=== PATIENT | male | born 1960 | race Caucasian/White ===

== ENCOUNTER → 2019-02-22 | Outpatient (CLI) | payer MEDICAID ==
[2019-02-22 08:14] LABS: Basophils # (auto) 0.1 uL; Mean Corpuscular Hemoglobin 26.5 pg (28.0-32.0); Nucleated Red Blood Cells % 0.1 %; White Blood Cell 6.7 10^3/uL (4.4-10.8)
[2019-02-22 08:15] LABS: Basophils % (auto) 0.8 % (0.0-2.0); Eosinophils # (auto) 0.3 uL; Eosinophils % (auto) 3.9 % (0.0-7.0); Hematocrit 42.4 % (41.0-53.0); Lymphocytes # (auto) 3.5 uL; Mean Corpuscular Hgb Conc. 33.1 g/dL (32.0-36.0); Monocytes # (auto) 0.5 uL; Monocytes % (auto) 6.8 % (0.0-12.0); Neutrophils # (auto) 2.4 uL; Neutrophils % (auto) 36.5 % (37.0-80.0); Platelet Count (auto) 191 10^3/uL (140-450); Red Cell Distribution Width 15.2 % (11.8-14.3)
[2019-02-22 09:07] LABS: Albumin 3.8 g/dL (3.4-5.0); Calcium 9.2 mg/dL (8.5-10.1); Potassium 3.9 mmol/L (3.5-5.1)
[2019-02-22 09:10] LABS: BUN/Creatinine Ratio 15.1; Bilirubin, Total 0.4 mg/dL (0.2-1.0); Total Protein 7.4 g/dL (6.4-8.2)
== END | disposition home or self-care (01) ==
LOC: LAB 07:54
PROVIDERS: ATTEND Internal Medicine
DX: Z12.11 Encounter for screening for malignant neoplasm of colon (principal); E11.9 Type 2 diabetes mellitus without complications; E78.5 Hyperlipidemia, unspecified; I10 Essential (primary) hypertension
CPT/HCPCS: 36415; 80053; 80061; 83036; 84153; 85025

== ENCOUNTER → 2019-02-27 | Outpatient (CLI) | payer MEDICAID | END | disposition home or self-care (01) | LOC: LAB 10:20 | PROVIDERS: ATTEND Internal Medicine | DX: Z12.11 Encounter for screening for malignant neoplasm of colon (principal); E11.9 Type 2 diabetes mellitus without complications; E78.5 Hyperlipidemia, unspecified; I10 Essential (primary) hypertension | CPT/HCPCS: 82270 ==

== ENCOUNTER → 2019-03-17 | Outpatient (CLI) | payer OTHER, MEDICAID ==
[~2019-03-17] MED LIST: ALPR0.254 PO; ASPI-404 PO; ATOR40TA52 PO; BENA40TA7 PO; BUPR300T28 PO; CITA-77 PO; IBUP800T24 PO; INSU50IN SC; LIRA18IN2 SUBCUT; LURA1TAB2 PO; METF-370 PO; MODA200T50 PO; PANT40TA2 PO; RISP1TAB63 PO; TOPI100T29 PO
== END | disposition home or self-care (01) ==
LOC: LAB 09:37
PROVIDERS: ATTEND Internal Medicine
DX: E11.9 Type 2 diabetes mellitus without complications (principal); I10 Essential (primary) hypertension; E78.5 Hyperlipidemia, unspecified
CPT/HCPCS: 82043

== ENCOUNTER 2019-03-21 10:08 | Day surgery (SDC) | payer OTHER, MEDICAID ==
[2019-03-17 10:49] LABS: Basophils # (auto) 0.1 uL; Eosinophils # (auto) 0.2 uL; Monocytes # (auto) 0.5 uL; White Blood Cell 7.6 10^3/uL (4.4-10.8)
[2019-03-17 10:52] LABS: Basophils % (auto) 0.8 % (0.0-2.0); Eosinophils % (auto) 2.4 % (0.0-7.0); Hematocrit 45.5 % (41.0-53.0); Hemoglobin 15.2 g/dL (13.5-17.5); Lymphocytes # (auto) 3.9 uL; Lymphocytes % (auto) 51.3 % (10.0-50.0); Mean Corpuscular Hemoglobin 26.9 pg (28.0-32.0); Mean Corpuscular Hgb Conc. 33.4 g/dL (32.0-36.0); Mean Corpuscular Volume 80.3 fL (80.0-100.0); Monocytes % (auto) 6.7 % (0.0-12.0); Neutrophils # (auto) 2.9 uL; Neutrophils % (auto) 38.8 % (37.0-80.0); Nucleated Red Blood Cells % 0.2 %; Platelet Count (auto) 210 10^3/uL (140-450); Red Blood Cells 5.66 10^6/uL (4.5-5.90); Red Cell Distribution Width 14.9 % (11.8-14.3)
[2019-03-17 11:00] LABS: INR 0.95 (0.9-1.15); Partial Thromboplastin Time 25.1 sec (23.64-32.05)
[~2019-03-21] VITALS: Ht 165.1 cm; Wt 84.4 kg
[2019-03-21] MEDS ORDERED: SODIUM CHLORIDE LOCK 10 ML ONE (10:34)
[2019-03-21] MEDS ORDERED: LIDOCAINE VISCOUS 2% 15ML UD ONE (10:34)
[2019-03-21] MEDS ORDERED: NALOXONE HCL 0.4 MG/ML VIAL ONE (10:34)
[2019-03-21] MEDS ORDERED: FLUMAZENIL 0.1 MG/ML INJ 10ML MDV IV ONE (10:34)
[2019-03-21] MEDS ORDERED: diphenhdrAMINE HCL 50 MG/1 ML VL ONE (10:35)
[2019-03-21] MEDS: MIDAZOLAM HCL 5 MG/ML-1ML VIAL ONE ×3 (12:08→12:19)
[2019-03-21] MEDS: fentaNYL CITRATE 100 MCG/2 ML VL ONE ×3 (12:08→12:19)
[2019-03-21 13:27] VITALS: BP 117/77
== END 2019-03-21 14:15 | disposition home or self-care (01) ==
LOC: SUR 10:08
PROVIDERS: ATTEND Internal Medicine Gastroenterology
DX: D12.3 Benign neoplasm of transverse colon (principal); K62.1 Rectal polyp; K51.40 Inflammatory polyps of colon without complications; K29.50 Unspecified chronic gastritis without bleeding; R14.0 Abdominal distension (gaseous); K29.80 Duodenitis without bleeding; K21.9 Gastro-esophageal reflux disease without esophagitis; Z98.890 Other specified postprocedural states; Z79.899 Other long term (current) drug therapy; Z79.84 Long term (current) use of oral hypoglycemic drugs; Z98.49 Cataract extraction status, unspecified eye
CPT/HCPCS: 36415; 43239; 45380; 82962; 85025; 85610; 85730; 88305; 88342; J1200; J2250; J3010; J7030; 99152; 99153

== ENCOUNTER → 2019-09-27 | Outpatient (CLI) | payer OTHER, MEDICAID ==
[2019-09-27 09:08] LABS: Cholesterol 145 mg/dL (< 200); HDL Cholesterol 27 mg/dL (40-59); LDL Cholesterol 90 mg/dL (< 100); Triglycerides 247 mg/dL (< 150)
== END | disposition home or self-care (01) ==
LOC: LAB 07:58
PROVIDERS: ATTEND Internal Medicine
DX: E11.9 Type 2 diabetes mellitus without complications (principal)
CPT/HCPCS: 36415; 80061; 83036

== ENCOUNTER → 2019-10-18 | Outpatient (CLI) | payer OTHER, MEDICAID | END | disposition home or self-care (01) | LOC: LAB 08:38 | PROVIDERS: ATTEND Internal Medicine | DX: M25.562 Pain in left knee (principal); M25.521 Pain in right elbow; I10 Essential (primary) hypertension | CPT/HCPCS: 36415; 84550; 85652; 86038; 86431 ==

== ENCOUNTER → 2020-01-24 | Outpatient (CLI) | payer OTHER, MEDICAID | END | disposition home or self-care (01) | LOC: LAB 07:42 | PROVIDERS: ATTEND Internal Medicine | DX: E11.9 Type 2 diabetes mellitus without complications (principal); Z12.5 Encounter for screening for malignant neoplasm of prostate | CPT/HCPCS: 36415; 82043; 83036; 84153 ==

== ENCOUNTER → 2020-04-24 | Outpatient (CLI) | payer OTHER, MEDICAID ==
[~2020-04-24] MED LIST changes: -ASPI-404 PO; +ASPI-543 PO
[2020-04-24 08:37] LABS: Potassium 4.3 mmol/L (3.5-5.1)
[2020-04-24 08:47] LABS: Albumin 3.5 g/dL (3.4-5.0); BUN/Creatinine Ratio 12.3; Bilirubin, Total 0.4 mg/dL (0.2-1.0); Total Protein 7.5 g/dL (6.4-8.2)
== END | disposition home or self-care (01) ==
LOC: LAB 07:06
PROVIDERS: ATTEND Internal Medicine
DX: E11.9 Type 2 diabetes mellitus without complications (principal); E78.5 Hyperlipidemia, unspecified
CPT/HCPCS: 36415; 80053; 80061; 82270

== ENCOUNTER → 2020-06-25 | Day surgery (SDC) | payer OTHER, MEDICAID ==
[2020-06-20 12:11] LABS: Basophils # (auto) 0.1 10 ^3/uL (0-0.2); Eosinophils # (auto) 0.2 10 ^3/uL (0-0.8); Eosinophils % (auto) 2.1 % (0.0-7.0); Mean Corpuscular Volume 78.4 fL (80.0-100.0); Monocytes # (auto) 0.5 10 ^3/uL (0-1.3); White Blood Cell 9.2 10^3/uL (4.4-10.8)
[2020-06-20 12:12] LABS: INR 0.99 (0.9-1.15); Lymphocytes # (auto) 4.7 10 ^3/uL (0.4-5.4); Lymphocytes % (auto) 51.3 % (10.0-50.0); Mean Corpuscular Hemoglobin 26.1 pg (28.0-32.0); Mean Corpuscular Hgb Conc. 33.3 g/dL (32.0-36.0); Neutrophils # (auto) 3.6 10 ^3/uL (1.6-8.6); Neutrophils % (auto) 39.6 % (37.0-80.0); Nucleated Red Blood Cells % 0.1 %; Partial Thromboplastin Time 24.1 sec (23.0-31.2); Platelet Count (auto) 249 10^3/uL (140-450); Red Blood Cells 6.13 10^6/uL (4.5-5.90); Red Cell Distribution Width 15.3 % (11.8-14.3)
[~2020-06-25] VITALS: Ht 165.1 cm; Wt 83.5 kg
[~2020-06-25] MED LIST changes: -CITA-77 PO; +FLUMAZENIL 0.1 MG/ML INJ 10ML MDV IV ONE; +FLUO-125 PO; -IBUP800T24 PO; +NALOXONE HCL 0.4 MG/ML VIAL ONE; +SODIUM CHLORIDE LOCK 10 ML ONE; +diphenhdrAMINE HCL 50 MG/1 ML VL ONE
[2020-06-25] MEDS: fentaNYL CITRATE 100 MCG/2 ML VL ONE ×3 (09:18→09:27)
[2020-06-25] MEDS: MIDAZOLAM HCL 5 MG/ML-1ML VIAL ONE ×4 (09:18→09:42)
[2020-06-25 10:30] VITALS: BP 116/68
== END | disposition home or self-care (01) ==
LOC: GI 08:47
PROVIDERS: ATTEND Internal Medicine Gastroenterology
DX: K62.5 Hemorrhage of anus and rectum (principal); D12.3 Benign neoplasm of transverse colon; D12.4 Benign neoplasm of descending colon; K63.5 Polyp of colon; N28.9 Disorder of kidney and ureter, unspecified; E11.9 Type 2 diabetes mellitus without complications; M79.9 Soft tissue disorder, unspecified; F17.200 Nicotine dependence, unspecified, uncomplicated; Z20.828 Contact with and (suspected) exposure to other viral communicable diseases; Z98.890 Other specified postprocedural states; Z79.899 Other long term (current) drug therapy
CPT/HCPCS: 36415; 45380; 45385; 82962; 85025; 85610; 85730; 88305; J1200; J2250; J3010; J7030; U0003; 99152; 99153

== ENCOUNTER → 2020-07-24 | Outpatient (CLI) | payer OTHER, MEDICAID ==
[~2020-07-24] MED LIST changes: -FLUMAZENIL 0.1 MG/ML INJ 10ML MDV IV ONE; -NALOXONE HCL 0.4 MG/ML VIAL ONE; -SODIUM CHLORIDE LOCK 10 ML ONE; -diphenhdrAMINE HCL 50 MG/1 ML VL ONE
[2020-07-24 08:22] LABS: Albumin 3.9 g/dL (3.4-5.0); Bilirubin, Direct 0.2 mg/dL (0-0.2); Bilirubin, Total 0.5 mg/dL (0.2-1.0); Total Protein 7.8 g/dL (6.4-8.2)
== END | disposition home or self-care (01) ==
LOC: LAB 07:17
PROVIDERS: ATTEND Internal Medicine
DX: E78.5 Hyperlipidemia, unspecified (principal)
CPT/HCPCS: 36415; 80061; 80076

== ENCOUNTER → 2020-09-05 | Outpatient (CLI) | payer OTHER, MEDICAID ==
[~2020-09-05] MED LIST changes: -BENA40TA7 PO; +BENA40TA8 PO; +LURA1TAB PO; -LURA1TAB2 PO
== END | disposition home or self-care (01) ==
LOC: XYW 10:10
PROVIDERS: ATTEND Internal Medicine
DX: M22.41 Chondromalacia patellae, right knee (principal); M17.11 Unilateral primary osteoarthritis, right knee; M89.38 Hypertrophy of bone, other site; M79.4 Hypertrophy of (infrapatellar) fat pad; R60.0 Localized edema
CPT/HCPCS: 73721

== ENCOUNTER 2020-11-06 10:47 | Emergency (ER) | payer OTHER, MEDICAID ==
[~2020-11-06] VITALS: Ht 165.1 cm; Wt 90.7 kg
[2020-11-06 11:18] LABS: Basophils # (auto) 0.1 10 ^3/uL (0-0.2); Basophils % (auto) 0.7 % (0.0-2.0); Eosinophils # (auto) 0.1 10 ^3/uL (0-0.8); Hemoglobin 14.6 g/dL (13.5-17.5); Monocytes # (auto) 0.6 10 ^3/uL (0-1.3); Nucleated Red Blood Cells % 0.1 %
[2020-11-06 11:20] LABS: Eosinophils % (auto) 1.5 % (0.0-7.0); Hematocrit 43.6 % (41.0-53.0); Lymphocytes # (auto) 3.1 10 ^3/uL (0.4-5.4); Lymphocytes % (auto) 39.2 % (10.0-50.0); Mean Corpuscular Hemoglobin 26.3 pg (28.0-32.0); Mean Corpuscular Hgb Conc. 33.4 g/dL (32.0-36.0); Mean Corpuscular Volume 78.5 fL (80.0-100.0); Neutrophils % (auto) 50.6 % (37.0-80.0); Platelet Count (auto) 215 10^3/uL (140-450); Red Blood Cells 5.55 10^6/uL (4.5-5.90); Red Cell Distribution Width 15.3 % (11.8-14.3); White Blood Cell 7.9 10^3/uL (4.4-10.8)
[2020-11-06 11:51] LABS: Albumin 3.7 g/dL (3.4-5.0); Anion Gap 8 (5-15); Blood Urea Nitrogen 14 mg/dL (7-18); Calcium 8.8 mg/dL (8.5-10.1); Carbon Dioxide 26 mmol/L (21-32); Chloride 105 mmol/L (98-107); Glucose 180 mg/dL (74-106); Magnesium 1.9 mg/dL (1.6-2.6); Potassium 3.9 mmol/L (3.5-5.1); Sodium 139 mmol/L (136-145)
[2020-11-06 11:58] LABS: Alanine Aminotransferase 47 U/L (16-61); Alkaline Phosphatase 81 U/L (45-117); Aspartate Aminotransferase 22 U/L (15-37); BUN/Creatinine Ratio 11.9; Bilirubin, Total 0.4 mg/dL (0.2-1.0); GFR African American 81 mL/min; GFR Non-African American 67 mL/min; Total Protein 7.7 g/dL (6.4-8.2)
[2020-11-06 12:11] LABS: INR 0.97 (0.9-1.15); Partial Thromboplastin Time 24.4 sec (23.0-31.2)
[2020-11-06 13:01] VITALS: BP 129/75
== END 2020-11-06 14:51 | disposition home or self-care (01) ==
LOC: ER 10:47
DX: S20.212A Contusion of left front wall of thorax, initial encounter (principal); E11.9 Type 2 diabetes mellitus without complications; K21.9 Gastro-esophageal reflux disease without esophagitis; I10 Essential (primary) hypertension; F17.210 Nicotine dependence, cigarettes, uncomplicated; Z79.899 Other long term (current) drug therapy; Z79.82 Long term (current) use of aspirin; W19.XXXA Unspecified fall, initial encounter; Y93.89 Activity, other specified; Y92.89 Other specified places as the place of occurrence of the external cause; Y99.8 Other external cause status
CPT/HCPCS: 36415; 71045; 71250; 80053; 83735; 84484; 85025; 85610; 85730; 93005

== ENCOUNTER 2021-02-07 19:50 | Emergency (ER) | payer OTHER, MEDICAID ==
[~2021-02-07] VITALS: Ht 165.1 cm; Wt 81.6 kg
[2021-02-07 19:50] VITALS: BP 146/82
[2021-02-07] MEDS ORDERED: KETOROLAC TROMETH 60MG/2ML VIAL IM ONE (22:00)
== END 2021-02-07 21:54 | disposition left against medical advice (07) ==
LOC: ER 19:50
DX: M25.562 Pain in left knee (principal); Z53.21 Procedure and treatment not carried out due to patient leaving prior to being seen by health care provider; W19.XXXA Unspecified fall, initial encounter; Y93.89 Activity, other specified; Y92.89 Other specified places as the place of occurrence of the external cause; Y99.8 Other external cause status

== ENCOUNTER → 2021-03-12 | Outpatient (CLI) | payer OTHER, MEDICAID | END | disposition home or self-care (01) | LOC: LAB 09:50 | PROVIDERS: ATTEND Internal Medicine | DX: K21.9 Gastro-esophageal reflux disease without esophagitis (principal); K63.5 Polyp of colon | CPT/HCPCS: 86677 ==

== ENCOUNTER → 2021-05-06 | Outpatient (CLI) | payer OTHER, MEDICAID | END | disposition home or self-care (01) | LOC: LAB 08:40 | PROVIDERS: ATTEND Internal Medicine | DX: E11.9 Type 2 diabetes mellitus without complications (principal) | CPT/HCPCS: 36415; 83036 ==

== ENCOUNTER → 2021-07-10 | Outpatient (CLI) | payer OTHER, MEDICAID ==
[~2021-07-10] MED LIST changes: -MODA200T50 PO; +MODA200T73 PO
== END | disposition home or self-care (01) ==
LOC: XY 08:33
PROVIDERS: ATTEND Psychiatry & Neurology Neurology
DX: I65.29 Occlusion and stenosis of unspecified carotid artery (principal)
CPT/HCPCS: 93886

== ENCOUNTER → 2021-09-03 | Day surgery (SDC) | payer OTHER, MEDICAID ==
[2021-08-29 11:14] LABS: Hemoglobin 16.1 g/dL (13.5-17.5); Mean Corpuscular Hemoglobin 26.1 pg (28.0-32.0)
[2021-08-29 11:15] LABS: Hematocrit 48.5 % (41.0-53.0); Mean Corpuscular Hgb Conc. 33.2 g/dL (32.0-36.0); Mean Corpuscular Volume 78.5 fL (80.0-100.0); Red Blood Cells 6.18 10^6/uL (4.5-5.90); Red Cell Distribution Width 15.2 % (11.8-14.3); White Blood Cell 7.3 10^3/uL (4.4-10.8)
[2021-08-29 11:17] LABS: INR 1.03 (0.9-1.15); Partial Thromboplastin Time 25.7 sec (23.6-33.0)
[2021-08-29 11:18] LABS: Band Neutrophils % (manual) 0; Basophils % (manual) 0 (0.0-2.0); Blast Cells 0; Metamyelocytes % 0; Myelocytes % 0; Promyelocytes % 0
[2021-08-29 11:44] LABS: Potassium 4.9 mmol/L (3.5-5.1)
[2021-08-29 12:10] LABS: Albumin 4.4 g/dL (3.4-5.0); BUN/Creatinine Ratio 16.9; Bilirubin, Total 0.6 mg/dL (0.2-1.0); Calcium 10.2 mg/dL (8.5-10.1); Total Protein 8.6 g/dL (6.4-8.2)
[2021-08-29 14:42] LABS: Eosinophils % (manual) 2 (0-7); Lymphocytes % (manual) 54 (10.0-50.0); Monocytes % (manual) 10 (0-12); Reactive Lymphocytes 8
[~2021-09-03] VITALS: Ht 165.1 cm; Wt 82.6 kg
[~2021-09-03] MED LIST changes: +LIDOCAINE VISCOUS 2% 15ML UD ONE; -MODA200T73 PO; -RISP1TAB63 PO; -TOPI100T29 PO
[2021-09-03] MEDS: fentaNYL CITRATE 100 MCG/2 ML VL ONE ×2 (14:30→14:33)
[2021-09-03] MEDS: diphenhdrAMINE HCL 50 MG/1 ML VL ONE ×2 (14:30→14:33)
[2021-09-03] MEDS: MIDAZOLAM HCL 5 MG/ML-1ML VIAL ONE ×2 (14:30→14:33)
[2021-09-03 15:15] VITALS: BP 139/76
== END | disposition home or self-care (01) ==
LOC: GI 13:07
PROVIDERS: ATTEND Internal Medicine Gastroenterology
DX: K21.9 Gastro-esophageal reflux disease without esophagitis (principal); K29.50 Unspecified chronic gastritis without bleeding; K31.89 Other diseases of stomach and duodenum; K44.9 Diaphragmatic hernia without obstruction or gangrene; K29.90 Gastroduodenitis, unspecified, without bleeding; F17.200 Nicotine dependence, unspecified, uncomplicated; I10 Essential (primary) hypertension; E11.9 Type 2 diabetes mellitus without complications; E78.5 Hyperlipidemia, unspecified; F32.9 Major depressive disorder, single episode, unspecified; G47.30 Sleep apnea, unspecified; Z20.822 Contact with and (suspected) exposure to COVID-19
CPT/HCPCS: 36415; 43239; 80053; 82962; 85007; 85027; 85610; 85730; 88305; 88312; 88342; J1200; J2250; J3010; J7030; U0003; 99152

== ENCOUNTER → 2021-09-09 | Outpatient (CLI) | payer OTHER, MEDICAID ==
[~2021-09-09] MED LIST changes: -LIDOCAINE VISCOUS 2% 15ML UD ONE
[2021-09-09 09:03] LABS: Red Cell Distribution Width 15.5 % (11.8-14.3)
[2021-09-09 09:05] LABS: Hematocrit 43.1 % (41.0-53.0); Hemoglobin 14.1 g/dL (13.5-17.5); Mean Corpuscular Hemoglobin 25.8 pg (28.0-32.0); Mean Corpuscular Hgb Conc. 32.6 g/dL (32.0-36.0); Red Blood Cells 5.45 10^6/uL (4.5-5.90); White Blood Cell 6.3 10^3/uL (4.4-10.8)
[2021-09-09 09:08] LABS: Basophils % (manual) 0 (0.0-2.0); Blast Cells 0; Metamyelocytes % 0; Myelocytes % 0; Promyelocytes % 0; Reactive Lymphocytes 0
[2021-09-09 09:12] LABS: Potassium 4.9 mmol/L (3.5-5.1)
[2021-09-09 09:29] LABS: Albumin 3.9 g/dL (3.4-5.0); BUN/Creatinine Ratio 13.2; Bilirubin, Total 0.8 mg/dL (0.2-1.0); Total Protein 7.7 g/dL (6.4-8.2)
[2021-09-09 09:33] LABS: Band Neutrophils % (manual) 1; Eosinophils % (manual) 3 (0-7); Lymphocytes % (manual) 55 (10.0-50.0); Monocytes % (manual) 5 (0-12)
== END | disposition home or self-care (01) ==
LOC: LAB 07:57
PROVIDERS: ATTEND Internal Medicine
DX: E11.49 Type 2 diabetes mellitus with other diabetic neurological complication (principal); R80.9 Proteinuria, unspecified
CPT/HCPCS: 36415; 80053; 80061; 82043; 83036; 85007; 85027

== ENCOUNTER → 2021-11-19 | Day surgery (SDC) | payer OTHER, MEDICAID ==
[2021-11-17 08:37] LABS: Eosinophils # (auto) 0.3 10 ^3/uL (0-0.8); Hemoglobin 14.7 g/dL (13.5-17.5); Monocytes # (auto) 0.4 10 ^3/uL (0-1.3); Nucleated Red Blood Cells % 0.1 %; Red Blood Cells 5.66 10^6/uL (4.5-5.90)
[2021-11-17 08:40] LABS: Basophils # (auto) 0.1 10 ^3/uL (0-0.2); Basophils % (auto) 1.2 % (0.0-2.0); Eosinophils % (auto) 4.4 % (0.0-7.0); Hematocrit 44.3 % (41.0-53.0); Lymphocytes # (auto) 3.6 10 ^3/uL (0.4-5.4); Lymphocytes % (auto) 56.5 % (10.0-50.0); Mean Corpuscular Hemoglobin 25.9 pg (28.0-32.0); Mean Corpuscular Hgb Conc. 33.1 g/dL (32.0-36.0); Mean Corpuscular Volume 78.3 fL (80.0-100.0); Monocytes % (auto) 6.3 % (0.0-12.0); Neutrophils % (auto) 31.6 % (37.0-80.0); Red Cell Distribution Width 14.9 % (11.8-14.3); White Blood Cell 6.4 10^3/uL (4.4-10.8)
[2021-11-17 08:49] LABS: INR 1.01 (0.9-1.15); Partial Thromboplastin Time 25.1 sec (23.6-33.0)
[2021-11-17 09:45] LABS: Albumin 3.8 g/dL (3.4-5.0); Calcium 9.5 mg/dL (8.5-10.1); Potassium 5.1 mmol/L (3.5-5.1)
[2021-11-17 09:48] LABS: BUN/Creatinine Ratio 9.3; Bilirubin, Total 0.5 mg/dL (0.2-1.0); Total Protein 7.8 g/dL (6.4-8.2)
[~2021-11-19] VITALS: Ht 165.1 cm; Wt 82.6 kg
[~2021-11-19] MED LIST changes: +LIDOCAINE VISCOUS 2% 15ML UD ONE
[2021-11-19] MEDS: diphenhdrAMINE HCL 50 MG/1 ML VL ONE ×2 (13:25→13:30)
[2021-11-19] MEDS: MIDAZOLAM HCL 5 MG/ML-1ML VIAL ONE ×4 (13:25→13:45)
[2021-11-19] MEDS: fentaNYL CITRATE 100 MCG/2 ML VL ONE ×3 (13:25→13:33)
[2021-11-19 14:45] VITALS: BP 129/71
== END | disposition home or self-care (01) ==
LOC: GI 12:40
PROVIDERS: ATTEND Internal Medicine Gastroenterology
DX: Z12.11 Encounter for screening for malignant neoplasm of colon (principal); D12.2 Benign neoplasm of ascending colon; K63.5 Polyp of colon; K63.89 Other specified diseases of intestine; K64.8 Other hemorrhoids; G47.30 Sleep apnea, unspecified; K21.9 Gastro-esophageal reflux disease without esophagitis; I10 Essential (primary) hypertension; E11.9 Type 2 diabetes mellitus without complications; E78.5 Hyperlipidemia, unspecified; F32.A Depression, unspecified; F17.200 Nicotine dependence, unspecified, uncomplicated; Z79.82 Long term (current) use of aspirin; Z86.010 Personal history of colon polyps; Z20.822 Contact with and (suspected) exposure to COVID-19
CPT/HCPCS: 36415; 45380; 45385; 80053; 82962; 85025; 85610; 85730; 88305; J1200; J2250; J3010; J7030; U0003; 99152; 99153

== ENCOUNTER → 2021-12-08 | Outpatient (CLI) | payer OTHER, MEDICAID, MEDICARE ==
[~2021-12-08] MED LIST changes: -LIDOCAINE VISCOUS 2% 15ML UD ONE
[2021-12-08 10:10] LABS: Cholesterol 126 mg/dL (< 200); HDL Cholesterol 29 mg/dL (40-59); LDL Cholesterol 78 mg/dL (< 100); Triglycerides 149 mg/dL (< 150)
== END | disposition home or self-care (01) ==
LOC: LAB 09:08
PROVIDERS: ATTEND Internal Medicine
DX: Z12.11 Encounter for screening for malignant neoplasm of colon (principal); E11.9 Type 2 diabetes mellitus without complications; E78.5 Hyperlipidemia, unspecified
CPT/HCPCS: 36415; 80061; 83036

== ENCOUNTER → 2021-12-10 | Outpatient (CLI) | payer OTHER, MEDICARE, MEDICAID | END | disposition home or self-care (01) | LOC: LAB 09:06 | PROVIDERS: ATTEND Internal Medicine | DX: Z12.11 Encounter for screening for malignant neoplasm of colon (principal); E78.5 Hyperlipidemia, unspecified; E11.9 Type 2 diabetes mellitus without complications | CPT/HCPCS: 82270 ==

== ENCOUNTER → 2022-03-09 | Outpatient (CLI) | payer OTHER, MEDICAID ==
[2022-03-09 08:46] LABS: Cholesterol 86 mg/dL (< 200); HDL Cholesterol 30 mg/dL (40-59); LDL Cholesterol 52 mg/dL (< 100); Triglycerides 119 mg/dL (< 150)
== END | disposition home or self-care (01) ==
LOC: LAB 07:53
PROVIDERS: ATTEND Internal Medicine
DX: E11.9 Type 2 diabetes mellitus without complications (principal)
CPT/HCPCS: 36415; 80061; 83036

== ENCOUNTER → 2022-06-22 | Outpatient (CLI) | payer OTHER, MEDICAID, MEDICARE | END | disposition home or self-care (01) | LOC: LAB 09:12 | PROVIDERS: ATTEND Internal Medicine | DX: E11.9 Type 2 diabetes mellitus without complications (principal) | CPT/HCPCS: 36415; 83036 ==

== ENCOUNTER → 2022-09-21 | Outpatient (CLI) | payer OTHER, MEDICAID, MEDICARE | END | disposition home or self-care (01) | LOC: LAB 09:13 | PROVIDERS: ATTEND Internal Medicine | DX: E11.9 Type 2 diabetes mellitus without complications (principal) | CPT/HCPCS: 36415; 82043; 83036 ==

== ENCOUNTER 2022-11-19 14:59 | Emergency (ER) | payer OTHER, MEDICAID ==
[~2022-11-19] VITALS: Ht 165.1 cm; Wt 85.0 kg
[2022-11-19 15:31] VITALS: BP 133/100
[2022-11-19 15:58] LABS: Hematocrit 52.7 % (41.0-53.0); Hemoglobin 17.1 g/dL (13.5-17.5); Mean Corpuscular Hemoglobin 25.4 pg (28.0-32.0); Mean Corpuscular Hgb Conc. 32.5 g/dL (32.0-36.0); Mean Corpuscular Volume 78.1 fL (80.0-100.0); Red Blood Cells 6.74 10^6/uL (4.5-5.90); Red Cell Distribution Width 16.6 % (11.8-14.3); White Blood Cell 8.9 10^3/uL (4.4-10.8)
[2022-11-19 16:02] LABS: Band Neutrophils % (manual) 0; Basophils % (manual) 0 (0.0-2.0); Blast Cells 0; Eosinophils % (manual) 0 (0-7); Metamyelocytes % 0; Myelocytes % 0; Promyelocytes % 0
[2022-11-19 16:19] LABS: Calcium 9.5 mg/dL (8.5-10.1); Potassium 4.5 mmol/L (3.5-5.1)
[2022-11-19 16:22] LABS: BUN/Creatinine Ratio 10.5 (10.0-20.0); Bilirubin, Total 0.5 mg/dL (0.2-1.0)
[2022-11-19 16:29] LABS: Lymphocytes % (manual) 60 (10.0-50.0); Monocytes % (manual) 8 (0-12); Reactive Lymphocytes 3
[2022-11-19 17:36] LABS: Urine WBC None Seen /hpf (0 - 3)
[2022-11-19 17:58] LABS: Urine Bacteria NONE SEEN /hpf (None Seen); Urine Blood Negative /uL (Negative); Urine Specific Gravity 1.013 (1.001-1.035)
== END 2022-11-19 19:13 | disposition home or self-care (01) ==
LOC: ER 14:59
DX: F32.9 Major depressive disorder, single episode, unspecified (principal); E11.9 Type 2 diabetes mellitus without complications; K21.9 Gastro-esophageal reflux disease without esophagitis; E78.5 Hyperlipidemia, unspecified; I10 Essential (primary) hypertension; F17.210 Nicotine dependence, cigarettes, uncomplicated; Z00.00 Encounter for general adult medical examination without abnormal findings; Z79.899 Other long term (current) drug therapy; Z79.4 Long term (current) use of insulin; Z79.84 Long term (current) use of oral hypoglycemic drugs
CPT/HCPCS: 36415; 80053; 81001; 82962; 83690; 83880; 85007; 85027; 93005

== ENCOUNTER 2022-11-24 06:44 | Day surgery (SDC) | payer OTHER, MEDICAID ==
[2022-11-19 09:20] LABS: Mean Corpuscular Hemoglobin 25.5 pg (28.0-32.0); Red Cell Distribution Width 16.8 % (11.8-14.3)
[2022-11-19 09:22] LABS: Hematocrit 53.3 % (41.0-53.0); Hemoglobin 17.4 g/dL (13.5-17.5); Mean Corpuscular Hgb Conc. 32.6 g/dL (32.0-36.0); Mean Corpuscular Volume 78.2 fL (80.0-100.0); Red Blood Cells 6.81 10^6/uL (4.5-5.90); Urine Bacteria NONE SEEN /hpf (None Seen); Urine Blood Negative /uL (Negative); Urine Specific Gravity 1.017 (1.001-1.035); Urine WBC <1 /hpf (0 - 3); White Blood Cell 6.9 10^3/uL (4.4-10.8)
[2022-11-19 09:24] LABS: Band Neutrophils % (manual) 0; Basophils % (manual) 0 (0.0-2.0); Blast Cells 0; Metamyelocytes % 0; Myelocytes % 0; Promyelocytes % 0; Reactive Lymphocytes 0
[2022-11-19 09:38] LABS: INR 1.05 (0.9-1.15); Partial Thromboplastin Time 27.1 sec (24.6-33.4)
[2022-11-19 11:59] LABS: Albumin 3.9 g/dL (3.4-5.0); BUN/Creatinine Ratio 9.8 (10.0-20.0); Bilirubin, Total 0.7 mg/dL (0.2-1.0); Calcium 9.7 mg/dL (8.5-10.1); Total Protein 7.9 g/dL (6.4-8.2)
[2022-11-19 12:35] LABS: Eosinophils % (manual) 3 (0-7); Lymphocytes % (manual) 69 (10.0-50.0); Monocytes % (manual) 1 (0-12)
[2022-11-19 13:17] LABS: Potassium 5.7 mmol/L (3.5-5.1)
[~2022-11-24] VITALS: Ht 165.1 cm; Wt 82.6 kg
[~2022-11-24 06:44] MED LIST changes: +BUPIVACAINE W/ EPINEPH 0.25% INJ 50ML MDV ONE; +DexAMETHasone SOD PHOS 4 MG/1ML SDV INJ ONE
[2022-11-24] MEDS ORDERED: EPINEPHrine HCL 1 MG/1 ML AMP ONE ×2 (06:45→08:53)
[2022-11-24] MEDS ORDERED: MIDAZOLAM HCL 2MG/2ML 2ml VIAL (1mg/ml) ONE (06:59)
[2022-11-24] MEDS ORDERED: ceFAZolin 1GM/50ML 100 ML IV ONE (07:33)
[2022-11-24] MEDS ORDERED: ONDANSETRON HCL 4 MG/2 ML VIAL ONE (07:37)
[2022-11-24] MEDS ORDERED: PROPOFOL 10 MG/ML 20 ML IV ONE (07:37)
[2022-11-24] MEDS ORDERED: GLYCOPYRROLATE 0.2 MG/ML 1ML VIAL ONE (07:37)
[2022-11-24] MEDS ORDERED: KETOROLAC TROMETH 30 MG/ML 1ML VIAL ONE (07:37)
[2022-11-24] MEDS ORDERED: LIDOCAINE 2% (LOCAL ANESTH.) PF 5ml SDV ONE (07:37)
[2022-11-24] MEDS ORDERED: DexAMETHasone SOD PHOS 10MG/1ML VIAL INJ ONE (07:37)
[2022-11-24] MEDS ORDERED: fentaNYL CITRATE 100 MCG/2 ML VL ONE (07:40)
[2022-11-24] MEDS ORDERED: ROCURONIUM 10MG/ML 10ML VIAL IV ONE (07:41)
[2022-11-24] MEDS ORDERED: SUGAMMADEX 200mg/2ml Vial (100MG/ML) IV ONE (07:41)
[2022-11-24] MEDS ORDERED: HYDR1TAB97 PO ×2 (08:10→09:12)
[2022-11-24] MEDS ORDERED: ASPI-498 OR (08:12)
[2022-11-24] MEDS ORDERED: CEPH-510 PO (08:12)
[2022-11-24] MEDS ORDERED: ePHEDrine SULFATE 50 MG/ML AMP ONE (09:34)
[2022-11-24] MEDS ORDERED: SODIUM CHLORIDE LOCK 10 ML ONE (09:34)
[2022-11-24] MEDS ORDERED: ESMOLOL HCL 10 ML IV ONE (09:45)
[2022-11-24] MEDS ORDERED: TRANEXAMIC ACID 10 ML ONE (09:49)
[2022-11-24] MEDS ORDERED: LABETALOL HCL 5 MG/ML 4ML SYRINGE IV PRN (11:00)
[2022-11-24] MEDS ORDERED: HYDROmorphone HCL 2 MG/ML VL/or syr IV PRN (11:00)
[2022-11-24] MEDS ORDERED: hydrALAZINE HCL 20 MG/ML VL IV PRN (11:00)
[2022-11-24] MEDS ORDERED: fentaNYL CITRATE 100 MCG/2 ML VL IV PRN (11:00)
[2022-11-24] MEDS ORDERED: ONDANSETRON HCL 4 MG/2 ML VIAL IV PRN (11:00)
[2022-11-24] MEDS ORDERED: FLUMAZENIL 0.1 MG/ML INJ 10ML MDV IV PRN (11:00)
[2022-11-24] MEDS ORDERED: NALOXONE HCL 0.4 MG/ML VIAL IV PRN (11:00)
[2022-11-24] MEDS ORDERED: ePHEDrine SULFATE 50 MG/ML AMP IV PRN (11:00)
[2022-11-24 11:40] VITALS: BP 147/71
== END 2022-11-24 10:43 | disposition home or self-care (01) ==
LOC: SUR 06:44
PROVIDERS: ATTEND Orthopaedic Surgery Sports Medicine
DX: M75.122 Complete rotator cuff tear or rupture of left shoulder, not specified as traumatic (principal); G89.29 Other chronic pain; S43.432A Superior glenoid labrum lesion of left shoulder, initial encounter; X58.XXXA Exposure to other specified factors, initial encounter; Y93.89 Activity, other specified; Y92.89 Other specified places as the place of occurrence of the external cause; Y99.8 Other external cause status; M75.52 Bursitis of left shoulder; E11.9 Type 2 diabetes mellitus without complications; I10 Essential (primary) hypertension; Z79.899 Other long term (current) drug therapy; Z79.84 Long term (current) use of oral hypoglycemic drugs
CPT/HCPCS: 29823; 29826; 29827; 36415; 80053; 81001; 82962; 85007; 85027; 85610; 85730; J0171; J0690; J1100; J1885; J2001; J2250; J2405; J2704; J3010; A4565

== ENCOUNTER → 2022-12-16 | Outpatient (CLI) | payer OTHER, MEDICAID ==
[~2022-12-16] MED LIST changes: +ASPI-498 OR; -BUPIVACAINE W/ EPINEPH 0.25% INJ 50ML MDV ONE; +CEPH-510 PO; -DexAMETHasone SOD PHOS 4 MG/1ML SDV INJ ONE; +HYDR1TAB97 PO
[2022-12-16 09:51] LABS: Calcium 10.1 mg/dL (8.5-10.1); Potassium 5.5 mmol/L (3.5-5.1)
[2022-12-16 09:56] LABS: Albumin 4.2 g/dL (3.4-5.0); BUN/Creatinine Ratio 15.1 (10.0-20.0); Bilirubin, Total 0.5 mg/dL (0.2-1.0)
== END | disposition home or self-care (01) ==
LOC: LAB 08:18
PROVIDERS: ATTEND Internal Medicine
DX: E11.9 Type 2 diabetes mellitus without complications (principal)
CPT/HCPCS: 36415; 80053; 83036

== ENCOUNTER → 2023-01-25 | Outpatient (CLI) | payer OTHER, MEDICAID ==
[~2023-01-25] MED LIST changes: +BENA40TA70 PO; -BENA40TA8 PO
[2023-01-25 08:10] LABS: Calcium 9.1 mg/dL (8.5-10.1); Potassium 4.5 mmol/L (3.5-5.1)
[2023-01-25 08:14] LABS: BUN/Creatinine Ratio 13.1 (10.0-20.0)
== END | disposition home or self-care (01) ==
LOC: LAB 07:15
PROVIDERS: ATTEND Internal Medicine
DX: I10 Essential (primary) hypertension (principal); E11.42 Type 2 diabetes mellitus with diabetic polyneuropathy
CPT/HCPCS: 36415; 80048; 80061; 83036; 84153

== ENCOUNTER → 2023-02-01 | Outpatient (CLI) | payer OTHER, MEDICAID | END | disposition home or self-care (01) | LOC: XYW 13:59 | PROVIDERS: ATTEND Internal Medicine | DX: R00.2 Palpitations (principal); R53.83 Other fatigue | CPT/HCPCS: 93306 ==

== ENCOUNTER → 2023-03-31 | Outpatient (CLI) | payer OTHER, MEDICAID ==
[2023-03-31 08:28] LABS: Hematocrit 47.5 % (41.0-53.0); Hemoglobin 15.5 g/dL (13.5-17.5); Mean Corpuscular Hemoglobin 26.1 pg (28.0-32.0); Mean Corpuscular Hgb Conc. 32.7 g/dL (32.0-36.0); Mean Corpuscular Volume 79.7 fL (80.0-100.0); Red Blood Cells 5.96 10^6/uL (4.5-5.90); Red Cell Distribution Width 15.6 % (11.8-14.3); White Blood Cell 6.3 10^3/uL (4.4-10.8)
[2023-03-31 08:34] LABS: Band Neutrophils % (manual) 0; Basophils % (manual) 0 (0.0-2.0); Blast Cells 0; Metamyelocytes % 0; Myelocytes % 0; Promyelocytes % 0; Reactive Lymphocytes 0
[2023-03-31 09:10] LABS: Creatinine, Urine 72.69 mg/dL (30.0-125.0)
[2023-03-31 13:14] LABS: Eosinophils % (manual) 3 (0-7); Lymphocytes % (manual) 56 (10.0-50.0); Monocytes % (manual) 7 (0-12); Platelet Estimate Adequate
== END | disposition home or self-care (01) ==
LOC: LAB 08:01
PROVIDERS: ATTEND Internal Medicine
DX: N18.30 Chronic kidney disease, stage 3 unspecified (principal); E11.22 Type 2 diabetes mellitus with diabetic chronic kidney disease
CPT/HCPCS: 36415; 82043; 82270; 82570; 82607; 84443; 85007; 85027

== ENCOUNTER → 2023-07-13 | Outpatient (CLI) | payer OTHER, MEDICAID ==
[~2023-07-13] VITALS: Ht 165.1 cm; Wt 81.6 kg
[~2023-07-13] MED LIST changes: +ADENOSINE 69 MG in GIVE UN-DILUTED 0 ML IV STA
== END | disposition home or self-care (01) ==
LOC: XYW 08:35
PROVIDERS: ATTEND Student in an Organized Health Care Education/Training Program
DX: R07.9 Chest pain, unspecified (principal); I10 Essential (primary) hypertension; E78.5 Hyperlipidemia, unspecified; E11.65 Type 2 diabetes mellitus with hyperglycemia; Z79.4 Long term (current) use of insulin
CPT/HCPCS: 78452; 93017; A9500; J0153

== ENCOUNTER → 2023-07-21 | Outpatient (CLI) | payer OTHER, MEDICAID ==
[~2023-07-21] MED LIST changes: -ADENOSINE 69 MG in GIVE UN-DILUTED 0 ML IV STA
[2023-07-21 09:24] LABS: Creatinine, Urine 54.57 mg/dL (30.0-125.0)
[2023-07-21 09:26] LABS: Cholesterol 93 mg/dL (< 200); Triglycerides 137 mg/dL (< 150)
[2023-07-21 09:27] LABS: HDL Cholesterol 25 mg/dL (40-59); LDL Cholesterol 45 mg/dL (< 100)
== END | disposition home or self-care (01) ==
LOC: LAB 08:10
PROVIDERS: ATTEND Internal Medicine
DX: E11.9 Type 2 diabetes mellitus without complications (principal); E78.5 Hyperlipidemia, unspecified
CPT/HCPCS: 36415; 80061; 82043; 82570; 83036

== ENCOUNTER 2023-12-01 20:46 | Inpatient (IN) | payer MEDICAID, OTHER ==
[~2023-12-01] VITALS: Ht 180.3 cm; Wt 100.0 kg
[~2023-12-01 20:46] MED LIST changes: -BENA40TA70 PO; +BENA40TA71 PO
[2023-12-01 21:28] LABS: Basophils # (auto) 0.2 10 ^3/uL (0-0.2); Basophils % (auto) 0.8 % (0.0-2.0); Eosinophils # (auto) 0.2 10 ^3/uL (0-0.8); Eosinophils % (auto) 1.1 % (0.0-7.0); Hematocrit 52.4 % (41.0-53.0); Hemoglobin 17.5 g/dL (13.5-17.5); Lymphocytes % (auto) 38.5 % (10.0-50.0); Mean Corpuscular Hemoglobin 27.1 pg (28.0-32.0); Mean Corpuscular Hgb Conc. 33.4 g/dL (32.0-36.0); Mean Corpuscular Volume 81.3 fL (80.0-100.0); Monocytes % (auto) 4.9 % (0.0-12.0); Neutrophils # (auto) 11.3 10 ^3/uL (1.6-8.6); Neutrophils % (auto) 54.7 % (37.0-80.0); Nucleated Red Blood Cells % 0.2 %; Red Blood Cells 6.45 10^6/uL (4.5-5.90); Red Cell Distribution Width 14.9 % (11.8-14.3); White Blood Cell 20.7 10^3/uL (4.4-10.8)
[2023-12-01] MEDS: SODIUM CHLORIDE 0.9% 1,000 ML IV ONE (22:10)
[2023-12-01] MEDS: methylPREDNISolone SOD SUCC 125 MG/2 ML VL IV ONE (22:10)
[2023-12-01] MEDS: ONDANSETRON HCL 4 MG/2 ML VIAL IV ONE (22:10)
[2023-12-01 22:28] LABS: Chloride 107 mmol/L (98-107); Potassium 4.8 mmol/L (3.5-5.1); Sodium 136 mmol/L (136-145)
[2023-12-01 22:29] LABS: Anion Gap 8 (5-15); Carbon Dioxide 21 mmol/L (20-30)
[2023-12-01 22:30] LABS: Calcium 9.8 mg/dL (8.5-10.1)
[2023-12-01 22:34] LABS: BUN/Creatinine Ratio 10.6 (10.0-20.0); Blood Urea Nitrogen 15 mg/dL (9-23); Glucose 137 mg/dL (74-106)
[2023-12-02] MEDS: SODIUM CHLORIDE 0.9% 2,250 ML IV ONE (00:30)
[2023-12-02 01:10] VITALS: TEMP 98.2
[2023-12-02 01:11] VITALS: PULSE 105; RESP 13; O2SAT 94
[2023-12-02 05:03] LABS: Urine Bacteria None Seen /hpf (None Seen)
[2023-12-02 05:12] LABS: Urine Blood Negative /uL (Negative); Urine Clarity Clear (Clear); Urine Color Yellow (Yellow); Urine Hyaline Cast MOD /lpf (0 - 2); Urine Mucus FEW (None Seen); Urine Protein, UAD TRACE (Negative); Urine Specific Gravity 1.019 (1.001-1.035); Urine Urobilinogen Normal (Negative); Urine WBC 2 /hpf (0 - 3)
[2023-12-02] MEDS ORDERED: MORPHINE SULFATE INJ 2 MG/ml SYRG IV PRN (06:00)
[2023-12-02] MEDS ORDERED: NITROGLYCERIN 0.4 MG SL TAB SL PRN (06:00)
[2023-12-02] MEDS ORDERED: ACETAMINOPHEN 325 MG TAB PO PRN (06:00)
[2023-12-02] MEDS ORDERED: DEXTROSE (50%) 50ML SYRG IV PRN (06:00)
[2023-12-02] MEDS ORDERED: ONDANSETRON HCL 4 MG/2 ML VIAL IV PRN (06:00)
[2023-12-02] MEDS ORDERED: TEMAZEPAM 15 MG CAP PO PRN (06:00)
[2023-12-02] MEDS ORDERED: diphenhdrAMINE HCL 25 MG CAP PO PRN (06:00)
[2023-12-02] MEDS: InsuLIN REG 1unit/0.01ml Soln (100units/ml) SC SCH (07:00)
[2023-12-02 07:11] LABS: Lactic Acid w/Reflex 2.6 mmol/L (0.4-2.0)
[2023-12-02] MEDS: ACCU-CHEK COMFORT CURVE STRIP VI SCH (07:12)
[2023-12-02 07:30] VITALS: PULSE 100; RESP 20; O2SAT 92
[2023-12-02] MEDS: cefTRIAXone 1GM/50ML D5W 50 ML IV SCH (07:30)
[2023-12-02 10:00] VITALS: BP 121/57; RESP 22; O2SAT 92
[2023-12-02] MEDS: METOPROLOL TARTRATE 25 MG TAB PO SCH (10:00)
[2023-12-02] MEDS: FAMOTIDINE (10MG/ML) 2ML VL IV SCH (10:05)
[2023-12-02] MEDS: ASPirin 81 mg TAB PO SCH (10:05)
[2023-12-02] MEDS: LISINOPRIL 5 MG TAB PO SCH (10:06)
[2023-12-02] MEDS: FLUoxetine HCL 20 MG CAP PO SCH (10:06)
[2023-12-02 12:00] VITALS: PULSE 100
[2023-12-02] MEDS ORDERED: ATORVASTATIN 20 MG TAB PO SCH (22:00)
== END 2023-12-02 15:57 | disposition left against medical advice (07) | DRG 811 ==
LOC: ER 20:46 → TELE 12-02 06:03
PROVIDERS: ADMIT Nurse Practitioner; ATTEND Nurse Practitioner Acute Care
DX: T78.49XA Other allergy, initial encounter (principal); I95.9 Hypotension, unspecified; E11.9 Type 2 diabetes mellitus without complications; F17.210 Nicotine dependence, cigarettes, uncomplicated; E78.5 Hyperlipidemia, unspecified; D72.829 Elevated white blood cell count, unspecified; L50.9 Urticaria, unspecified; I10 Essential (primary) hypertension; I48.91 Unspecified atrial fibrillation; X58.XXXA Exposure to other specified factors, initial encounter; Z82.49 Family history of ischemic heart disease and other diseases of the circulatory system; Z79.4 Long term (current) use of insulin; Z53.29 Procedure and treatment not carried out because of patient's decision for other reasons
CPT/HCPCS: 36415; 71046; 80048; 81001; 82962; 83605; 83735; 83880; 84484; 85025; 85379; 87040; 93005; 96365; 96375; 99291; G0378; J1815; J2405; J3490